=== PATIENT | female | born 1955 | race Caucasian/White ===

== ENCOUNTER → 2016-12-26 | Outpatient (CLI) | payer BC | END | disposition home or self-care (01) | LOC: CT 19:20 | DX: G31.89 Other specified degenerative diseases of nervous system (principal); S09.90XA Unspecified injury of head, initial encounter | CPT/HCPCS: 70450 ==

== ENCOUNTER → 2017-11-26 | Outpatient (CLI) | payer BC | END | disposition home or self-care (01) | LOC: CDC 11:38 | DX: Z01.810 Encounter for preprocedural cardiovascular examination (principal); S53.432A Radial collateral ligament sprain of left elbow, initial encounter; M77.12 Lateral epicondylitis, left elbow; M25.522 Pain in left elbow; R00.1 Bradycardia, unspecified | CPT/HCPCS: 93000 ==